=== PATIENT | female | born 1995 | race Caucasian/White ===

== ENCOUNTER → 2021-05-20 15:18 | Outpatient (BNVA) | payer MEDICAID, SELFPAY | PROVIDERS: Family Provider Family Medicine; PCP Family Medicine; Visit Provider Family Medicine Adult Medicine | DX: M79.631 Pain in right forearm (principal) | CPT/HCPCS: 73090 ==

== ENCOUNTER → 2024-04-04 15:06 | Outpatient (BNVA) | payer BC, MEDICAID, SELFPAY | PROVIDERS: Family Provider Family Medicine; PCP Family Medicine; Visit Provider Registered Nurse Neonatal Intensive Care | DX: J02.9 Acute pharyngitis, unspecified (principal) | CPT/HCPCS: 87880 ==

== ENCOUNTER 2024-06-28 09:06 | Emergency (ER) | payer BC, MEDICAID, SELFPAY ==
--- NOTE | 2024-06-28 09:14 | USR_ITS ---
PROCEDURE INFORMATION: Exam: US First Trimester, Transabdominal and US , Transvaginal Exam date and time: 06/28/2024 10:49 AM Age: 29 years old Clinical indication: complicated by abdominal or pelvic pain; Lower; First trimester (<14 weeks 0 days); Gestational age or lmp: Patient states 9 weeks; Additional info: R/O ectopic preg LABS AND CLINICAL REPORTS: Last menstrual period start date: 04/21/2024 Gestational age (Established): 9 w 5 d Estimated due date (Established): 01/26/2025 TECHNIQUE: Imaging protocol: Real-time transabdominal obstetrical ultrasound of the maternal pelvis and a first trimester , less than 14 weeks 0 days, with image documentation. Transvaginal imaging was used for better evaluation of the fetus, adnexa, and/or cervix. COMPARISON: No relevant prior studies available. FINDINGS: GESTATION: Gestation: There is intrauterine gestational sac present with a mean diameter of 7.0 mm corresponding to 5 weeks 3 days gestational age. Transvaginal imaging discloses a small pole measuring 1.7 mm. This finding is too small for dates. Extra-embryonic membranes/Placenta: Unremarkable. No subchorionic bleed. Amniotic/Chorionic fluid: Amniotic and extra-amniotic fluid are normal for gestational age. BIOMETRY: Gestational age (AUA): 5 weeks 3 days [place] 02/25/2025 Mean sac diameter: 0.7 cm. EGA (MSD) is 5 w 3 d MATERNAL: Uterus: Unremarkable. Endometrium measures 2.4 cm. Cervix: Cervical length measures 3.4 cm. Right ovary/adnexa: 1.4 cm x 1.3 cm x 2.7 cm normal vascular flow Left ovary/adnexa: 1.9 cm x 1.7 cm x 1.4 cm. Normal vascular flow. There is a moderate volume free fluid collection in the cul-de-sac. US/US OB <=14 wk fetus w transvag IMPRESSION: 1. There is intrauterine gestational sac with a small pole too small for dates 2. Gestational age by gestational sac size 5 weeks 3 days [place] 02/25/2025 3. There is a moderate volume subchorionic hemorrhage 4. Moderate free fluid collection in the cul-de-sac 5. Normal bilateral ovaries 6. Unremarkable uterus and endometrium. 7. Normal cervix
[2024-06-28 10:13] LABS: Basophils % 0.6 %; Eosinophils % 0.6 %; Hematocrit 37.6 % (36-47); Lymphocytes # 2.8 10^3/uL (0.8-4.8); Lymphocytes % 40.8 %; Mean Corpuscular HGB Conc 34.3 g/dL (30-55); Mean Corpuscular Hemoglobin 30.7 pg (27-33); Mean Corpuscular Volume 89.5 fl (85-98); Mean Platelet Volume 10.2 fL (7.4-10.4); Monocytes # 0.4 10^3/uL (0.2-0.9); Monocytes % 5.8 %; Neutrophils # 3.53 10^3/uL (1.8-7.7); Neutrophils % 51.6 %; Nucleated Red Blood Cells % 0 %; Platelet Count 350 10^3/cmm (157-399); Red Cell Distribution Width 12.7 % (12.1-15.1); White Blood Count 6.84 10^3/uL (3.29-11.43)
[2024-06-28 10:19] VITALS: BP 116/82; PULSE 84; RESP 18; TEMP 36.7; O2SAT 100; BMI 28.0
[2024-06-28 10:39] LABS: Alanine Aminotransferase 14 U/L (0-33); Albumin Level 4.3 g/dL (3.5-5.2); Alkaline Phosphatase 68 U/L (35-105); Anion Gap 13.9 (5-19); Aspartate Amino Transferase 14 U/L (0-32); Blood Urea Nitrogen 8 mg/dL (6-20); Calcium 8.8 mg/dL (8.5-10.5); Carbon Dioxide 25 mmol/L (22-29); Chloride 101 mmol/L (98-107); Creatinine Clr Calc Pharmacy 146.6575; Globulin 2.5 g/dL (1.3-4.6); Glomerular Filtration Rate 118.2 mL/min (90-130); Glucose 98 mg/dL (65-115); Osmolality Calculated 280 mOsm/kg (285-295); Potassium 3.9 mmol/L (3.5-5.1); Sodium 136 mmol/L (136-145); Total Bilirubin 0.3 mg/dL (0.15-1.2); Total Protein 6.8 g/dL (6.6-8.7)
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
[2024-06-28 12:05] LABS: Bilirubin Urine Negative (Negative); Blood Urine Negative (Negative); Glucose Urine UA Negative (Normal); Ketones Urine Negative (Negative); Leukocyte Esterase Urine Negative (Negative); Nitrate Urine Negative (Negative); Protein Urine Negative (Negative); Specific Gravity, Urine 1.018 (1.005-1.030); Urine Appearance Clear (CLEAR); Urine Color Yellow (Yellow); Urobilinogen Urine 0.2 mg/dL (Negative)
[2024-06-28 12:09] LABS: Add Urine Microscopic? YES; Bacteria Urine None Seen /hpf; Hyaline Casts Urine 0-4 /lpf; RBC Urine 0-2 /hpf (0-2); Squamous Epithelial Cell Urine 0-5 /hpf (0-5); WBC Urine 0-5 /hpf (0-5)
[2024-06-28 12:58] VITALS: BP 115/86; PULSE 83; O2SAT 99
== END 2024-06-28 12:59 | disposition home or self-care (01) ==
PROVIDERS: Emergency Provider Physician Assistant; Family Provider Family Medicine; PCP Family Medicine
DX: O20.8 Other hemorrhage in early pregnancy (principal); Z3A.01 Less than 8 weeks gestation of pregnancy
CPT/HCPCS: 36415; 76801; 76817; 80053; 81001; 81025; 84702; 85025; 86900; 87086; 87491; 87591; 99284

== ENCOUNTER → 2024-07-01 08:50 | Outpatient (BNVA) | payer BC, MEDICAID, SELFPAY | PROVIDERS: Family Provider Family Medicine; PCP Family Medicine; Visit Provider Nurse Practitioner Women's Health | DX: O20.8 Other hemorrhage in early pregnancy (principal) | CPT/HCPCS: 84702 ==

== ENCOUNTER → 2024-07-11 12:48 | Outpatient (BNVA) | payer BC, MEDICAID, SELFPAY | PROVIDERS: Family Provider Family Medicine; PCP Family Medicine; Visit Provider Nurse Practitioner Women's Health | DX: Z36.87 Encounter for antenatal screening for uncertain dates (principal); Z3A.01 Less than 8 weeks gestation of pregnancy | CPT/HCPCS: 76817 ==

== ENCOUNTER → 2024-07-24 13:20 | Outpatient (BNVA) | payer BC, MEDICAID, SELFPAY | PROVIDERS: Family Provider Family Medicine; PCP Family Medicine; Visit Provider Nurse Practitioner Women's Health | DX: Z34.90 Encounter for supervision of normal pregnancy, unspecified, unspecified trimester (principal) | CPT/HCPCS: 80307; 84315; 85025; 86592; 86762; 86803; 86850; 86900; 87086; 87340; 87806 ==

== ENCOUNTER → 2024-09-27 15:53 | Outpatient (BNVA) | payer BC, MEDICAID, SELFPAY | PROVIDERS: Family Provider Family Medicine; PCP Family Medicine; Visit Provider Obstetrics & Gynecology | DX: Z34.80 Encounter for supervision of other normal pregnancy, unspecified trimester (principal) | CPT/HCPCS: 84315 ==

== ENCOUNTER → 2024-10-14 14:38 | Outpatient (BNVA) | payer BC, MEDICAID, SELFPAY | PROVIDERS: Family Provider Family Medicine; PCP Family Medicine; Visit Provider Obstetrics & Gynecology | DX: Z34.92 Encounter for supervision of normal pregnancy, unspecified, second trimester (principal) | CPT/HCPCS: 76805 ==

== ENCOUNTER → 2024-10-24 11:23 | Outpatient (BNVA) | payer BC, MEDICAID, SELFPAY | PROVIDERS: Family Provider Family Medicine; PCP Family Medicine; Visit Provider Obstetrics & Gynecology | DX: Z34.80 Encounter for supervision of other normal pregnancy, unspecified trimester (principal) | CPT/HCPCS: 84315 ==

== ENCOUNTER → 2024-11-11 08:52 | Outpatient (BNVA) | payer BC, MEDICAID, SELFPAY | PROVIDERS: Family Provider Family Medicine; PCP Family Medicine; Visit Provider Obstetrics & Gynecology | DX: Z34.92 Encounter for supervision of normal pregnancy, unspecified, second trimester (principal) | CPT/HCPCS: 76816 ==

== ENCOUNTER → 2024-11-12 11:58 | Outpatient (BNVA) | payer BC, MEDICAID, SELFPAY | PROVIDERS: Family Provider Family Medicine; PCP Family Medicine; Visit Provider Nurse Practitioner Women's Health | DX: Z34.90 Encounter for supervision of normal pregnancy, unspecified, unspecified trimester (principal) | CPT/HCPCS: 84315 ==

== ENCOUNTER → 2024-12-03 10:46 | Outpatient (BNVA) | payer BC, MEDICAID, SELFPAY | PROVIDERS: Family Provider Family Medicine; PCP Family Medicine; Visit Provider Nurse Practitioner Women's Health | DX: Z36.9 Encounter for antenatal screening, unspecified (principal) | CPT/HCPCS: 76816 ==

== ENCOUNTER → 2024-12-06 10:39 | Outpatient (BNVA) | payer BC, MEDICAID, SELFPAY | PROVIDERS: Family Provider Family Medicine; PCP Family Medicine; Visit Provider Obstetrics & Gynecology | DX: Z34.80 Encounter for supervision of other normal pregnancy, unspecified trimester (principal) | CPT/HCPCS: 82950; 84315; 85025 ==

== ENCOUNTER → 2024-12-23 09:18 | Outpatient (BNVA) | payer BC, MEDICAID, SELFPAY | PROVIDERS: Family Provider Family Medicine; PCP Family Medicine; Visit Provider Nurse Practitioner Women's Health | DX: O99.891 Other specified diseases and conditions complicating pregnancy (principal); R81 Glycosuria | CPT/HCPCS: 80053; 82962; 84315; 85025 ==

== ENCOUNTER → 2025-01-06 10:26 | Outpatient (BNVA) | payer BC, MEDICAID, SELFPAY | PROVIDERS: Family Provider Family Medicine; PCP Family Medicine; Visit Provider Nurse Practitioner Women's Health | DX: Z34.80 Encounter for supervision of other normal pregnancy, unspecified trimester (principal) | CPT/HCPCS: 76816; 84315 ==

== ENCOUNTER 2025-01-10 22:20 | Outpatient (CLI) | payer BC, MEDICAID, SELFPAY ==
[2025-01-10 22:20] VITALS: BMI 35.3
[2025-01-10 22:33] VITALS: BP 132/66; PULSE 103
[2025-01-10 22:44] VITALS: RESP 17
[2025-01-10 22:52] VITALS: BP 110/62; PULSE 92
[2025-01-10 23:04] VITALS: BP 113/63; PULSE 88
[2025-01-10 23:14] VITALS: BP 118/62; PULSE 96
[2025-01-10 23:30] VITALS: BP 118/62; PULSE 96; O2SAT 100
== END 2025-01-10 23:38 | disposition home or self-care (01) ==
LOC: OPOB 22:22 → OBGYN 22:22
PROVIDERS: Family Provider Family Medicine; PCP Electrodiagnostic Medicine; Visit Provider Obstetrics & Gynecology
DX: O26.899 Other specified pregnancy related conditions, unspecified trimester (principal); Z3A.00 Weeks of gestation of pregnancy not specified; R60.9 Edema, unspecified
CPT/HCPCS: 59025; 99211

== ENCOUNTER → 2025-01-21 14:11 | Outpatient (BNVA) | payer BC, MEDICAID, SELFPAY | PROVIDERS: Family Provider Family Medicine; PCP Family Medicine; Visit Provider Nurse Practitioner Women's Health | DX: Z34.80 Encounter for supervision of other normal pregnancy, unspecified trimester (principal); O26.00 Excessive weight gain in pregnancy, unspecified trimester; O99.019 Anemia complicating pregnancy, unspecified trimester | CPT/HCPCS: 82570; 84156; 84315; 85025 ==

== ENCOUNTER → 2025-02-04 08:15 | Outpatient (BNVA) | payer BC, MEDICAID, SELFPAY | PROVIDERS: Family Provider Family Medicine; PCP Family Medicine; Visit Provider Nurse Practitioner Women's Health | DX: Z34.80 Encounter for supervision of other normal pregnancy, unspecified trimester (principal) | CPT/HCPCS: 76816; 84315; 85025; 87081 ==

== ENCOUNTER 2025-02-11 22:35 | Inpatient (IN) | payer BC, MEDICAID, SELFPAY ==
[2025-02-11] VITALS (82 sets, daily range): BP systolic 118–142; BP diastolic 68–87; PULSE 83–121; TEMP 36.7; O2SAT 93–100; BMI 38.4
--- NOTE | 2025-02-11 15:50 | USR_ITS ---
PROCEDURE INFORMATION: Exam: US Biophysical Profile Without Non-Stress Test Exam date and time: 02/11/2025 4:21 PM Age: 30 years old Clinical indication: Screening exam; Routine US screening of fetus; Third trimester (>=28 weeks 0 days); ; Additional info: Tachy SOB 8lb weight gain in one week, jerson TECHNIQUE: Imaging protocol: US biophysical profile without non-stress testing. COMPARISON: [place] [address] 02/04/2025 8:20 AM FINDINGS: Gestation: Single intrauterine gestation. heart rate: 142 bpm. presentation and position: Cephalic presentation. Placenta: Anterior grade 3 placenta. Amniotic fluid index: 11.6 cm (normal) BIOPHYSICAL PROFILE: breathing (BPP): 2 out of 2. gross body movement (BPP): 2 out of 2. tone (BPP): 2 out of 2. Amniotic fluid (BPP): 2 out of 2. US/US OB BPP wo NST 53995 IMPRESSION: Normal biophysical profile score 8/8.
[2025-02-11 16:38] LABS: Basophils % 0.4 %; Eosinophils % 0.3 %; Lymphocytes % 21.1 %; Mean Corpuscular HGB Conc 33.1 g/dL (30-55); Mean Corpuscular Hemoglobin 30.5 pg (27-33); Mean Platelet Volume 12.4 fL (7.4-10.4); Monocytes # 0.8 10^3/uL (0.2-0.9); Monocytes % 8.1 %; Neutrophils # 6.32 10^3/uL (1.8-7.7); Neutrophils % 65.2 %; Nucleated Red Blood Cells % 0.2 %; Platelet Count 276 10^3/cmm (157-399); Red Blood Count 3.48 10^6/uL (3.85-5.65); Red Cell Distribution Width 15.7 % (12.1-15.1); White Blood Count 9.68 10^3/uL (3.29-11.43)
[2025-02-11 16:44] LABS: Bilirubin Urine Negative (Negative); Blood Urine Negative (Negative); Glucose Urine UA Negative (Normal); Ketones Urine Trace (Negative); Leukocyte Esterase Urine Trace (Negative); Nitrate Urine Negative (Negative); Protein Urine Trace (Negative); Specific Gravity, Urine 1.018 (1.005-1.030); Urine Appearance Cloudy (CLEAR); Urine Color Yellow (Yellow); Urobilinogen Urine 0.2 mg/dL (Negative); pH Urine 7.5 (5-7)
[2025-02-11 16:50] LABS: Add Urine Microscopic? YES; Alanine Aminotransferase 18 U/L (0-33); Albumin Level 3.5 g/dL (3.5-5.2); Alkaline Phosphatase 189 U/L (35-105); Aspartate Amino Transferase 26 U/L (0-32); Bacteria Urine None Seen /hpf; Blood Urea Nitrogen 9 mg/dL (6-20); Calcium 9.3 mg/dL (8.5-10.5); Carbon Dioxide 20 mmol/L (22-29); Chloride 103 mmol/L (98-107); Creatinine Clr Calc Pharmacy 204.5624; Globulin 2.8 g/dL (1.3-4.6); Glomerular Filtration Rate 144.9 mL/min (90-130); Glucose 102 mg/dL (65-115); Hyaline Casts Urine 0-4 /lpf; Osmolality Calculated 287 mOsm/kg (285-295); Sodium 139 mmol/L (136-145); Squamous Epithelial Cell Urine 0-5 /hpf (0-5); Total Bilirubin 0.2 mg/dL (0.15-1.2); Total Protein 6.3 g/dL (6.6-8.7); Uric Acid 4.7 mg/dL (2.4-5.7); WBC Urine 0-5 /hpf (0-5)
[2025-02-11 17:00] LABS: Urine Creatinine 106 mg/dL (28-217)
[2025-02-11 17:01] LABS: UPRO/UCREAT Ratio 0.22 mg/mg CR; Urine Protein Random 23 mg/dL
--- NOTE | 2025-02-11 17:22 | ECG_ITS ---
[facility] Date: 2025-02-11 Pat Name: Mackenzie Sparrow Department: Room: OB14 Gender: Female Manager Culinary: : 1995 Requested By: Idalia Akhtar Order Number: [id number] Reading MD: Measurements Intervals [place] Rate: 95 P: 23 MO: 147 QRS: 15 QRSD: 83 T: 7 QT: 344 QTc: 434 Interpretive Statements SINUS RHYTHM POSSIBLE LEFT ATRIAL ENLARGEMENT [-0.1mV P-WAVE IN V1/V2] POSSIBLE RIGHT VENTRICULAR CONDUCTION DELAY [RSR (QR) IN V1/V2] [email or web address]
[2025-02-11 18:41] LABS: D Dimer 2.09 ug/mLFEU (0-0.59)
[2025-02-11] MEDS: aspirin 81 mg Chew Tablet PO (19:54)
--- NOTE | 2025-02-11 20:27 | P.HPUD_ITS ---
Labor & Delivery H&P Update Date of Procedure: February 11, 2025 Date H&P Performed: 02/11/25 H&P update information: Changes to prior documentation as noted here Changes to previous documentation: 30-year-old female G3, P1 at 37.3 weeks gestation admitted to labor and delivery after observation for shortness of breath and severe lower extremity swelling. record and patient reports 8 pound weight gain in less than a week. Swelling has increased over the last several weeks but over the last several days the swelling has been causing awakenings from sleep with severe pain in her legs and feet. Patient denies chest pain, abdominal pain or vaginal bleeding. She admits to good movement and occasional contraction. Upon presentation to the women's clinic today for routine visit patient's heart rate was elevated 120-150 with O2 sats 96 to 100%. record reflects 66 pound weight gain during this . With 8 pound weight gain during the last week. Observation on labor and delivery with lab essentially normal except for D-dimer slightly elevated at 2. EKG essentially normal. EFM?category 1 with contractions every 3 to 6 minutes mild. Cervix?2 cm / 50%/-2 vertex. With patient's presentation I discussed concern of her tachycardia and severe swelling even though her blood pressure is normal. Options for cervical ripening and induction versus AROM to assist with delivery. I discussed the nini vated D-dimer could represent the possibility of a DVT or clots elsewhere in her body are the possibility of a future event. Patient understands and complains of her discomfort that she has had over the last several days with difficulty sleeping and laying flat causing more shortness of breath. Patient requests admission with AROM instead of Cytotec induction. Risk of maternal and intolerance to labor were reviewed with the possibility of a being needed if either occurs. Patient understands and consent is signed. VSS, afebrile Head?normocephalic Heart?tachycardia has resolved to normal rate. No murmur noted Lungs?CTA bilateral Abdomen?soft, gravid, no tenderness to palpation Extremities?+2+3 edema, negative Homans' sign Cervix?2 cm / 50%/-2 vertex, AROM with clear fluid noted. Admission Diagnosis: Preop diagnosis: 37.3 weeks gestation with maternal tachycardia and severe swelling Primary indication for procedure: Maternal tachycardia at 37 weeks gestation Shortness of breath Elevated D-dimer GBS negative Planned procedure: 1. Admit to labor and delivery for induction of labor versus AROM. 2. Start ASA 81 mg p.o. daily 3. Lab to include CBC, CMP, D-dimer, UDS, EKG and chest x-ray 4. If patient tachycardia returns we will get medicine hospitalist to consult. Related Problem List Diagnoses (1) 37 weeks gestation of : (2) Tachycardia with heart rate 121-140 beats per minute: (3) Maternal excessive weight gain:
--- NOTE | 2025-02-11 20:45 | XRR_ITS ---
PROCEDURE INFORMATION: Exam: XR Chest Exam date and time: 02/11/2025 8:54 PM Age: 30 years old Clinical indication: Other: Elevated d-dimer TECHNIQUE: Imaging protocol: Radiologic exam of the chest. Views: 1 view. COMPARISON: No relevant prior studies available. FINDINGS: Lungs: Minimal bibasilar atelectasis . No focal consolidation Pleural spaces: Unremarkable. No pleural effusion. No pneumothorax. Heart/Mediastinum: Unremarkable. No cardiomegaly. Bones/joints: Unremarkable. XR/XR chest 1V portable [id number] IMPRESSION: Minimal bibasilar atelectasis.
[2025-02-11 21:03] LABS: Amphetamines Screen Urine Negative (Negative); Barbiturates Screen Urine Negative (Negative); Benzodiazepines Screen Urine Negative (Negative); Cocaine Screen Urine Negative (Negative); Opiate Screen Urine Negative (Negative); PCP Screen Urine Negative (Negative); THC Screen Urine Negative (Negative)
[2025-02-11] MEDS: dextrose 5%-lactated ringers 1,000 ML 80 ML IV (23:55)
[2025-02-12] VITALS (322 sets, daily range): BP systolic 97–146; BP diastolic 55–83; PULSE 68–128; RESP 16–17; TEMP 35.5–36.9; O2SAT 90–100
[2025-02-12] MEDS: acetaminophen 325 mg Tablet 650 MG PO ×2 (00:47→18:13)
[2025-02-12] MEDS: calcium carbonate 500 mg Chew Tablet 1000 MG PO (04:51)
[2025-02-12] MEDS: oxytocin 30 UNIT/500 ML BAG IV (06:25)
--- NOTE | 2025-02-12 10:48 | PM.OBGYPN ---
[employer] Subjective Subjective: Interval history: 30-year-old G3, P1 at 37.3 weeks gestation admitted yesterday for induction of labor due to maternal tachycardia and excessive weight gain and swelling. Tachycardia resolved after bout an hour with no medical management. AROM option was requested by patient rather than Cytotec. Patient is currently on 4 milliunits Pitocin, cervix is 3 cm / 60%/-2 vertex with clear fluid noted. Patient contractions had a coupling pattern q. 2 to 4 minutes last night therefore Pitocin was not increased. Will increase via moderate protocol as tolerated today. This was reviewed with patient and she verbalizes understanding. Labor: Station: -3 Amniotic Membrane Status: Ruptured Monitor Mode: Palpation Contraction Pattern: Occasional Vitals/I&O/Wt Last Vital Signs Temp 98.1 F 02/11/25 21:00 Pulse 103 H 02/12/25 10:46 BP 119/79 02/12/25 10:19 Pulse Ox 98 02/12/25 10:46 O2 Del Method Room Air 02/12/25 09:10 02/11/25 02/12/25 02/12/25 22:59 06:59 14:59 Intake Total 3.583 / 3.583 Balance 3.583 / 3.583 Weight last 48 hrs Weight 107.955 kg Weight 107.955 kg Data 02/11/25 16:12 02/11/25 16:12 A&P Assessment and plan (1) Tachycardia with heart rate 121-140 beats per minute: (2) 37 weeks gestation of : (3) Maternal excessive weight gain: PDMP PDMP Reviewed: Not Reviewed Attestations Medical Necessity Statement*: Patient mid to labor and delivery with maternal tachycardia, excessive weight gain and severe swelling. Induction of labor Coding Level of Care Code Acute Code for Chg Fwd Diagnoses Tachycardia with heart rate 121-140 beats per minute R00.0 37 weeks gestation of Z3A.37 Excessive weight gain during in third trimester O26.03 Trimester: third trimester
[2025-02-12] MEDS: fentaNYL 50 mcg/mL INJ 2mL IVP ×2 (12:02→13:41)
[2025-02-12] MEDS: aspirin 81 mg Chew Tablet PO (13:42)
[2025-02-12] MEDS: ROPivacaine syringe 100 MG/50 ML SYRINGE 10 MG EPIDURAL ×2 (14:20→18:16)
[2025-02-12] MEDS: dextrose 5%-lactated ringers 1,000 ML 80 ML IV (14:20)
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
--- NOTE | 2025-02-12 17:10 | P.PN_ITS ---
JOB PLACEMENT SPECIALIST Subjective 2 Subjective: Interval history: 30-year-old female G3, P1 at 37.4 weeks gestation admitted yesterday for induction of labor after presenting to labor and delivery triage with maternal tachycardia, severe swelling and excessive weight gain. Patient's labor was induced with AROM yesterday and Pitocin was started last night low-dose. Contractions resulted in a couplet fashion every 2 to 4 minutes, which limited the increase of the Pitocin dose. Early this a.m. patient's contractions normalized and moderate dose Pitocin protocol was started. Patient cervix has progressed from 2 to now 6 cm / 80%/0 vertex presentation with clear fluid noted. Patient's progress was discussed with her and she verbalizes understanding. Labor: Station: -3 Amniotic Membrane Status: Ruptured Monitor Mode: External Contraction Pattern: Regular Vitals/I&O/Wt Last Vital Signs Temp 95.9 F L 02/12/25 16:32 Pulse 108 H 02/12/25 17:07 Resp 16 02/12/25 13:41 BP 111/62 02/12/25 16:48 Pulse Ox 98 02/12/25 17:07 O2 Del Method Room Air 02/12/25 10:28 02/12/25 02/12/25 02/12/25 06:59 14:59 22:59 Intake Total 3.583 / 3.583 Balance 3.583 / 3.583 Weight last 48 hrs Weight 107.955 kg Weight 107.955 kg Data 02/11/25 16:12 02/11/25 16:12 A&P Assessment and plan (1) 37 weeks gestation of : (2) Maternal excessive weight gain: (3) Tachycardia with heart rate 121-140 beats per minute: Plan Continue present care with induction. PDMP PDMP Reviewed: Not Reviewed Attestations 2 Medical Necessity Statement*: Patient was admitted to labor and delivery on 02/11/2025 after being observed with maternal tachycardia, excessive weight gain and edema. Patient elected to proceed with induction of labor. Coding Level of Care Code Acute Code for Chg Fwd Diagnoses 37 weeks gestation of Z3A.37 Excessive weight gain during in third trimester O26.03 Trimester: third trimester Tachycardia with heart rate 121-140 beats per minute R00.0
[2025-02-12] MEDS: ondansetron 2 mg/ML SDV 2 mL 4 MG IVP (18:13)
--- NOTE | 2025-02-12 19:37 | P.PN_ITS ---
WIPER BLENDER Subjective 2 Subjective: Interval history: 30-year-old female at 37.4 weeks g estation admitted for induction of labor with maternal tachycardia, excessive weight gain and severe swelling. Patient now complete/+1 vertex EFM?category 1. Discussed with patient discontinuing epidural and allowed to labor down before starting to push. Patient hesitant to DC epidural so therefore we will continue to labor down and start pushing with nursing staff in 20 to 30 minutes. Labor: Station: 0 Amniotic Membrane Status: Ruptured Monitor Mode: Palpation Contraction Pattern: Regular Vitals/I&O/Wt Last Vital Signs Temp 98.4 F 02/12/25 18:29 Pulse 107 H 02/12/25 19:32 Resp 17 02/12/25 18:29 BP 114/67 02/12/25 19:28 Pulse Ox 99 02/12/25 19:32 O2 Del Method Room Air 02/12/25 10:28 02/12/25 02/12/25 02/12/25 06:59 14:59 22:59 Intake Total 1028.083 / 1028.083 550 / 1578.083 Balance 1028.083 / 1028.083 550 / 1578.083 Weight last 48 hrs Weight 107.955 kg Weight 107.955 kg Physical Exam 2 Urinary Catheter Management: Ramon: Cath Placed During This Visit: yes Reason for Continuing Indwelling Catheter: Other Urinary Catheter Date of Insertion: 02/12/25 Urinary Catheter Time of Insertion: 15:30 Data 02/11/25 16:12 02/11/25 16:12 A&P Assessment and plan (1) Tachycardia with heart rate 121-140 beats per minute: (2) 37 weeks gestation of : (3) Maternal excessive weight gain: PDMP PDMP Reviewed: Not Reviewed Attestations 2 Medical Necessity Statement*: Admission to labor and delivery for induction of labor with maternal tachycardia. Maternal tachycardia?resolved Coding Level of Care Code Acute Code for Chg Fwd Diagnoses Tachycardia with heart rate 121-140 beats per minute R00.0 37 weeks gestation of Z3A.37 Excessive weight gain during in third trimester O26.03 Trimester: third trimester
--- NOTE | 2025-02-12 20:25 | P.PCNOB_ITS ---
Delivery Note: Date of delivery: February 12, 2025 Pre-delivery diagnoses: 37.4 weeks gestation Maternal tachycardia resolved Excessive weight gain Severe edema Post-delivery diagnoses: S/p viable baby girl Procedure: Induction of labor with AROM viable female Op report anesthesia: Epidural Delivering Physician: Idalia Akhtar DO Estimated blood loss (mL): 400 Findings: Viable baby girl Post Delivery Diagnoses: Maternal excessive weight gain: Qualifiers: Trimester: third trimester Qualified Code(s): O26.03 - Excessive weight gain in , third trimester Pre-Delivery Course: 30-year-old female admitted to lab or and delivery at 37.4 weeks gestation after being seen with maternal tachycardia which resolved after admission,, excessive weight gain and severe edema. Patient elected AROM for induction of labor. Patient progressed with Pitocin to complete dilatation. Delivery: 30-year-old G3, P2 at 37.4 weeks gestati on became complete and +1 station. After several pushes the vertex presented in OA presentation followed by the anterior and posterior shoulders. The remainder the baby's body delivered uneventfully. Spontaneous robust cry was noted. After delay of 1 to 2 minutes the umbilical cord was doubly clamped and cut. The baby was placed on the mother's abdomen for nursing assessment and bonding. Umbilical pH and cord blood were obtained and handed off. The uterus was massaged and the placenta presented in a Vincent presentation with trailing membranes. The uterus was massaged and firmed well with minimal bleeding. The peritoneum and cervical edges were evaluated with no lacerations noted. Anesthesia?epidural EBL?400 complications?none three-vessel cord Mother and infant are both in stable and satisfactory condition. Dr Akhtar Post-Delivery Status: Stable History History History 3 Term 2 0 Miscarriages/Ectopic 1 Living Children 2 A&P Assessment and plan (1) Tachycardia with heart rate 121-140 beats per minute: Resolved (2) 37 weeks gestation of : (3) Maternal excessive weight gain: (4) Depression affecting : (5) (spontaneous vaginal delivery): Viable baby girl, weight 7#11 and Apgars 9/9. Plan Began care PDMP PDMP Reviewed: Not Reviewed Coding Level of Care Code Acute Code for Chg Fwd Diagnoses Tachycardia with heart rate 121-140 beats per minute R00.0 37 weeks gestation of Z3A.37 Excessive weight gain during in third trimester O26.03 Trimester: third trimester Depression affecting O99.340; F32.A (spontaneous vaginal delivery) O80
[2025-02-13 00:05] VITALS: BP 122/73; PULSE 111
[2025-02-13 02:30] VITALS: BP 111/65; PULSE 123; RESP 15; TEMP 37.1; O2SAT 97
[2025-02-13 04:20] VITALS: BP 119/92; PULSE 114; RESP 17; TEMP 37.1; O2SAT 98
[2025-02-13 09:00] VITALS: BP 112/78; PULSE 112; RESP 16; TEMP 36.9
[2025-02-13] MEDS: aspirin 81 mg Chew Tablet PO (09:09)
[2025-02-13] MEDS: docusate sodium 100 mg Capsule PO (09:10)
[2025-02-13] MEDS: ibuprofen 800 mg tablet PO ×3 (09:10→21:24)
[2025-02-13 10:20] LABS: Hematocrit 30.3 % (36-47); Mean Corpuscular Hemoglobin 29.4 pg (27-33); Mean Corpuscular Volume 94.7 fl (85-98); Mean Platelet Volume 12.3 fL (7.4-10.4); Platelet Count 222 10^3/cmm (157-399); Red Cell Distribution Width 16.3 % (12.1-15.1); White Blood Count 15.76 10^3/uL (3.29-11.43)
--- NOTE | 2025-02-13 11:15 | P.PN_ITS ---
WILDLIFE MANAGEMENT PROFESSOR Subjective 2 Subjective: Interval history: 30-year-old female G3, P2 delivered via at 37.4 weeks after presenting to labor and delivery with complaints of shortness of breath, excessive weight gain and severe edema. During labor patient's tachycardia resolved and remained normal. Postdelivery patient denies shortness of breath or chest pain headache or blurred vision. She is tolerating a regular diet voiding and ambulating in her room. She states her legs are less painful and that the swelling seems to be decreasing. expectations to include no heavy lifting pushing or pulling no sexual intercourse x 6 weeks. Patient is encouraged to consume a high-fiber diet and increase fluids. I discussed with her the body will resolve her lower extremity edema with increased urination. Patient understands Labor: Station: 0 Amniotic Membrane Status: Ruptured Monitor Mode: Palpation Contraction Pattern: Regular Vitals/I&O/Wt Last Vital Signs Temp 98.7 F 02/13/25 04:20 Pulse 114 H 02/13/25 04:20 Resp 17 02/13/25 04:20 BP 119/92 02/13/25 04:20 Pulse Ox 98 02/13/25 04:20 O2 Del Method Room Air 02/13/25 04:20 02/12/25 02/13/25 02/13/25 22:59 06:59 14:59 Intake Total 550 / 1578.083 Balance 550 / 1578.083 Weight last 48 hrs Weight 107.955 kg Weight 107.955 kg Physical Exam 2 Back/Pelvis: OTHER: Abdomen?soft, fundus firm below umbilicus. Lochia?light rubra. Extremity: COMMON NORMALS: normal to inspection and no calf tenderness Urinary Catheter Management: Ramon: Cath Placed During This Visit: yes Reason for Continuing Indwelling Catheter: Other Urinary Catheter Date of Insertion: 02/12/25 Urinary Catheter Time of Insertion: 15:30 Data 02/13/25 09:31 02/11/25 16:12 A&P Assessment and plan (1) (spontaneous vaginal delivery): Continue care. (2) Tachycardia with heart rate 121-140 beats per minute: (3) 37 weeks gestation of : (4) Maternal excessive weight gain: (5) Anemia affecting : (6) Depression affecting : PDMP PDMP Reviewed: Not Reviewed Attestations 2 Medical Necessity Statement*: Patient was admitted to labor and delivery on 02/12/2025 with maternal tachycardia at 37.4 weeks gestation. Patient elected to be induced for delivery. Coding Level of Care Code Acute Code for Chg Fwd Diagnoses (spontaneous vaginal delivery) O80 Tachycardia with heart rate 121-140 beats per minute R00.0 37 weeks gestation of Z3A.37 Excessive weight gain during in third trimester O26.03 Trimester: third trimester Anemia affecting in third trimester O99.013 Trimester: third trimester Depression affecting O99.340; F32.A
--- NOTE | 2025-02-13 13:46 | ANE.PACU2 ---
Inpatient post-anesthesia follow up: Airway intact: Yes Vital signs: Temperature 98.7 F Pulse Rate 114 Respiratory Rate 17 Blood Pressure 119/92 Pulse Oximetry 98 Oxygen Delivery Me thod Room Air Oxygen Flow Rate Fraction of Inspir ed Oxygen Hydration adequate: Yes Nausea and vomiting: No Pain level: 1 Mental status: Baseline Epidural Start/End: Epidural Start Date: 02/12/25 Epidural Start Time: 14:05 Epidural End Date: 02/12/25 Epidural End Time: 22:00
[2025-02-13] MEDS: acetaminophen 325 mg Tablet 650 MG PO (17:50)
--- NOTE | 2025-02-13 17:54 | PM.OBGYDC ---
Discharge Providers DRY SANDER Date of Admission: 02/11/25 22:35 Date of Discharge: 02/13/25 Attending Provider at Admission: Idalia Akhtar DO Attending Provider at Discharge: Idalia Akhtar DO Primary DRY SANDER: Dr. Stalin Lee Primary Care Provider: Haile Abreu MD Diagnoses at Discharge Discharge Diagnosis (1) (spontaneous vaginal delivery): Details from hospital stay: 30-year-old female G3 now P2 at 37.4 weeks was admitted to labor and delivery on 02/12/2025 with complaints of shortness of breath and excessive lower extremity swelling. During observation patient was noted to have sinus tachycardia with excessive weight gain and excessive lower extremity edema. Patient was ariadne every 2 to 7 minutes mildly. Patient was given the option for admission for induction of labor. Patient's lab was unremarkable other than a slightly elevated D-dimer. EKG was normal sinus rhythm. After AROM and augmentation with Pitocin patient progressed to complete dilatation and with 2-3 pushes with contractions patient delivered via a viable baby girl. Patient's course has been uncomplicated. Her tachycardia resolved during labor and has not returned. VSS, afebrile Heart?regular rate and rhythm no murmur Lungs?CTA bilateral Extremities?+2 edema, negative Homans' sign. Abdomen?soft, fundus firm 4 cm below umbilicus. Lochia?light rubra. Status: Acute (2) Tachycardia with heart rate 121-140 beats per minute: Status: Acute (3) 37 weeks gestation of : Status: Acute (4) Maternal excessive weight gain: Status: Acute Qualifiers: Trimester: third trimester Qualified Code(s): O26.03 - Excessive weight gain in , third trimester (5) Anemia affecting : Status: Acute Qualifiers: Trimester: third trimester Qualified Code(s): O99.013 - Anemia complicating , third trimester (6) Depression affecting : Status: Acute Reason for Visit Reason for Visit: Pre E work up Hospital Course Hospital Course See note above under hospital stay Information Peripartum Data: Infant Delivery Method: Vaginal Laceration description: None Episiotomy description: None complications: none Physical Exam Urinary Catheter Management: Ramon: Cath Placed During This Visit: yes Reason for Continuing Indwelling Catheter: Other Urinary Catheter Date of Insertion: 02/12/25 Urinary Catheter Time of Insertion: 15:30 History History History 3 Term 2 0 Miscarriages/Ectopic 1 Living Children 2 Discharge Data Studies Completed and Pending Completed Studies During Hospitalization Category Date Time Status CXRP [XR chest 1V portable [id number]] Stat Exams 02/11/25 20:45 Completed US OB BPP wo NST 82314 Stat Ultrasound 02/11/25 15:50 Completed Radiology Impressions Obstetrics US/Biophysical Profile 02/11/25 15:50 IMPRESSION: Normal biophysical profile score 8/8. Chest X-Ray 02/11/25 20:45 IMPRESSION: Minimal bibasilar atelectasis. Laboratory Results WBC 15.76 10^3/uL (3.29-11.43) H 02/13/25 09:31 RBC 3.20 10^6/uL (3.85-5.65) L 02/13/25 09:31 Hgb 9.40 g/dL (11.27-16.99) L 02/13/25 09:31 Hct 30.3 % (36-47) L 02/13/25 09:31 MCV 94.7 fl (85-98) 02/13/25 09:31 MCH 29.4 pg (27-33) 02/13/25 09:31 MCHC 31.0 g/dL (30-55) 02/13/25 09:31 RDW 16.3 % (12.1-15.1) H 02/13/25 09:31 Plt Count 222 10^3/cmm (157-399) 02/13/25 09:31 MPV 12.3 fL (7.4-10.4) H 02/13/25 09:31 Neut % (Auto) 65.2 % 02/11/25 16:12 Lymph % (Auto) 21.1 % 02/11/25 16:12 [place] % (Auto) 8.1 % 02/11/25 16:12 Eos % (Auto) 0.3 % 02/11/25 16:12 Baso % (Auto) 0.4 % 02/11/25 16:12 Neut # (Auto) 6.32 10^3/uL (1.8-7.7) 02/11/25 16:12 Lymph # (Auto) 2.0 10^3/uL (0.8-4.8) 02/11/25 16:12 [place] # (Auto) 0.8 10^3/uL (0.2-0.9) 02/11/25 16:12 Eos # (Auto) 0.0 10^3/uL (0.0-0.8) 02/11/25 16:12 Baso # (Auto) 0.0 10^3/uL (0.0-0.1) 02/11/25 16:12 Nucleated RBC % (auto) 0.2 % 02/11/25 16:12 Nucleated RBCs # 0.0 /100WBC 02/11/25 16:12 D-Dimer 2.09 ug/mLFEU (0-0.59) H 02/11/25 18:16 Sodium 139 mmol/L (136-145) 02/11/25 16:12 Potassium 4.0 mmol/L (3.5-5.1) 02/11/25 16:12 Chloride 103 mmol/L (98-107) 02/11/25 16:12 Carbon Dioxide 20 mmol/L (22-29) L 02/11/25 16:12 Anion Gap 20.0 (5-19) H 02/11/25 16:12 BUN 9 mg/dL (6-20) 02/11/25 16:12 Creatinine 0.5 mg/dL (0.5-0.9) 02/11/25 16:12 GFR Calculation 144.9 mL/min (90-130) H 02/11/25 16:12 Glucose 102 mg/dL (65-115) 02/11/25 16:12 Calculated Osmolality 287 mOsm/kg (285-295) 02/11/25 16:12 Uric Acid 4.7 mg/dL (2.4-5.7) 02/11/25 16:12 Calcium 9.3 mg/dL (8.5-10.5) 02/11/25 16:12 Total Bilirubin 0.2 mg/dL (0.15-1.2) 02/11/25 16:12 AST 26 U/L (0-32) 02/11/25 16:12 ALT 18 U/L (0-33) 02/11/25 16:12 Alkaline Phosphatase 189 U/L (35-105) H 02/11/25 16:12 Total Protein 6.3 g/dL (6.6-8.7) L 02/11/25 16:12 Albumin 3.5 g/dL (3.5-5.2) 02/11/25 16:12 Globulin 2.8 g/dL (1.3-4.6) 02/11/25 16:12 Urine Color Yellow (Yellow) 02/11/25 16:12 Urine Appearance Cloudy (CLEAR) A 02/11/25 16:12 Urine pH 7.5 (5-7) 02/11/25 16:12 Ur Specific [place] 1.018 (1.005-1.030) 02/11/25 16:12 Urine Protein Trace (Negative) A 02/11/25 16:12 Urine Glucose (UA) Negative (Normal) 02/11/25 16:12 Urine Ketones Trace (Negative) 02/11/25 16:12 Urine Blood Negative (Negative) 02/11/25 16:12 Urine Nitrate Negative (Negative) 02/11/25 16:12 Urine Bilirubin Negative (Negative) 02/11/25 16:12 Urine Urobilinogen 0.2 mg/dL (Negative) 02/11/25 16:12 Ur Leukocyte Esterase Trace (Negative) A 02/11/25 16:12 Urine RBC 3-5 /hpf (0-2) 02/11/25 16:12 Urine WBC 0-5 /hpf (0-5) 02/11/25 16:12 Ur Squamous Epith Cells 0-5 /hpf (0-5) 02/11/25 16:12 Amorphous Sediment Not Reportable 02/11/25 16:12 Urine Bacteria None seen /hpf (NONE) 02/11/25 16:12 Hyaline Casts 0-4 /lpf H 02/11/25 16:12 U Random Total Protein 23 mg/dL 02/11/25 16:12 Urine Creatinine 106 mg/dL (28-217) 02/11/25 16:12 Protein/Creatinin Ratio 0.22 mg/mg CR 02/11/25 16:12 Urine Opiates Screen Negative ng/mL (Negative) 02/11/25 16:12 Ur Barbiturates Screen Negative ng/mL (Negative) 02/11/25 16:12 Ur Phencyclidine Scrn Negative ng/mL (Negative) 02/11/25 16:12 Ur Amphetamines Screen Negative ng/mL (Negative) 02/11/25 16:12 U Benzodiazepines Scrn Negative ng/mL (Negative) 02/11/25 16:12 Urine Cocaine Screen Negative ng/mL (Negative) 02/11/25 16:12 U Marijuana (THC) Screen Negative ng/mL (Negative) 02/11/25 16:12 Blood Type O Positive 02/11/25 21:00 Rho(D) Type Rh positive 02/11/25 21:00 Antibody Screen Negative 02/11/25 21:00 Vitals Last Vital Signs Temp 98.5 F 02/13/25 09:00 Pulse 112 H 02/13/25 09:00 Resp 16 02/13/25 09:00 BP 112/78 02/13/25 09:00 Pulse Ox 98 02/13/25 04:20 O2 Del Method Room Air 02/13/25 09:00 Results Labs OB ([facility]): Obstetrics US 02/04/25 Obstetrics US/Biophysical Profile 02/11/25 Blood Type O Positive 02/11/25 Antibody Screen Negative 02/11/25 Hct, (36-47) 30.3 % L Today Hgb, (11.27-16.99) 9.40 g/dL L Today Rho(D) Type Rh positive 02/11/25 Plt Count, (157-399) 222 10^3/cmm Today Hep Bs Antigen, (Nonreactive) Non-reactive 07/24/24 Hepatitis C Antibody, (Nonreactive) Non-reactive 07/24/24 Rubella IgG Antibody, (0.0-10.0) 23.8 IU/mL H 07/24/24 RPR, (Nonreactive) Nonreactive 07/24/24 HIV 1&2 Ab & HIV 1 Ag, (Non-Reactiv) Non-reactive 07/24/24 C.trachomatis RNA (TMA), (NOT DETECTED) Not detected 06/28/24 N.gonorrhoeae RNA (TMA), (NOT DETECTED) Not detected 06/28/24 T. vaginalis Amp RNA, (NOT DETECTED) Not detected 06/28/24 Chlamydia/GC Comment See note 06/28/24 Glucose 1 Hr 50 gm, (85-140) 109 mg/dL 12/06/24 Uric Acid, (2.4-5.7) 4.7 mg/dL 02/11/25 Ser , Semi-Qnt 09131.00 mIU/mL 07/01/24 HCG, Qual, (Negative) Positive H 06/28/24 Urine Opiates Screen, (Negative) Negative ng/mL 02/11/25 Ur Barbiturates Screen, (Negative) Negative ng/mL 02/11/25 Ur Phencyclidine Scrn, (Negative) Negative ng/mL 02/11/25 Ur Amphetamines Screen, (Negative) Negative ng/mL 02/11/25 U Benzodiazepines Scrn, (Negative) Negative ng/mL 02/11/25 Urine Cocaine Screen, (Negative) Negative ng/mL 02/11/25 U Marijuana (THC) Screen, (Negative) Negative ng/mL 02/11/25 Micro Urine Specimen 07/24/24 Discharge Plan Discharge Patient Disposition: Home Condition: Stable Prescriptions: Continued omeprazole 20 mg capsule,delayed release(DR/EC) 20 mg PO DAILY Qty: 30 0RF Rx Instructions: take once daily famotidine 20 mg tablet 20 mg PO DAILY calcium carbonate [Tums] 200 mg calcium (500 mg) tablet,chewable 200 mg PO BID DHA 200 mg capsule 200 mg PO DAILY acetaminophen 500 mg capsule 500 mg PO Q6H Qty: 60 0RF ferrous sulfate 325 mg (65 mg iron) tablet 325 mg PO BID Qty: 60 2RF Discharge Orders: Discharge Order (Routine); Ordered 02/13/25 Ordered By: Idalia Akhtar Referrals: Chloe Haile NP [Nurse Practitioner, DRY SANDER] - 03/27/25 8:45 am Discharge Diet: Regular Discharge Activity: Increase activity as tolerated Patient Instructions: Depression (DC), Opioid Safety (DC), Preeclampsia and Eclampsia After Delivery (GEN), Hemorrhage (DC), OB Discharge Report, OB Food/Drug Interaction Guide, Opioid Safety, OB Home Care, OB Vaginal Deliveries - [facility], Abnormal Bleeding Activity Restrictions/Additional Instructions: No heavy lifting pushing pulling. No sexual intercourse x 6 weeks. Patient to continue her vitamins and iron while breast-feeding with a high-fiber diet and increase fluids. Assessment: 1. S/p viable female at 37.4 weeks gestation. 2. Excessive weight gain during Plan of Treatment: Will DC to home today. Follow-up in 6 weeks at [facility] for evaluation. Discharge Attestations DRY SANDER Time Spent in Discharge Care*: less than 30 min Coding Level of Care Code Acute Code for Chg Fwd Diagnoses (spontaneous vaginal delivery) O80 Tachycardia with heart rate 121-140 beats per minute R00.0 37 weeks gestation of Z3A.37 Excessive weight gain during in third trimester O26.03 Trimester: third trimester Anemia affecting in third trimester O99.013 Trimester: third trimester Depression affecting O99.340; F32.A
[2025-02-13 21:40] VITALS: BP 120/86; PULSE 90; RESP 16; TEMP 36.8; O2SAT 99
[2025-02-13 21:44] VITALS: BP 120/86; PULSE 90; RESP 16; TEMP 36.8; O2SAT 99
== END 2025-02-13 21:44 | disposition home or self-care (01) | DRG 807 ==
LOC: OPOB 22:35 → OBGYN 22:35
PROVIDERS: Admitting Provider Obstetrics & Gynecology; PCP Family Medicine; Visit Provider Obstetrics & Gynecology
DX: O99.892 Other specified diseases and conditions complicating childbirth (principal); Z37.0 Single live birth; Z3A.37 37 weeks gestation of pregnancy; R00.0 Tachycardia, unspecified; O26.03 Excessive weight gain in pregnancy, third trimester; O12.04 Gestational edema, complicating childbirth; O99.344 Other mental disorders complicating childbirth; F32.A Depression, unspecified; O99.02 Anemia complicating childbirth; D64.9 Anemia, unspecified; R79.1 Abnormal coagulation profile; O75.89 Other specified complications of labor and delivery; R06.02 Shortness of breath
CPT/HCPCS: 36415; 51702; 59025; 59409; 71045; 76819; 80053; 80306; 81001; 82570; 84156; 84315; 84550; 85025; 85027; 85378; 86850; 86900; 93005; 96374; 96376; 99211; J2405; J2590; J2795; J3010; J7121; J9999

== ENCOUNTER → 2025-03-31 16:50 | Outpatient (BNVA) | payer BC, MEDICAID, SELFPAY | PROVIDERS: PCP Family Medicine; Visit Provider Obstetrics & Gynecology | DX: Z12.4 Encounter for screening for malignant neoplasm of cervix (principal) | CPT/HCPCS: 87624 ==